=== PATIENT | female | born 1990 | race Caucasian/White ===

== ENCOUNTER → 2025-02-09 08:48 | Outpatient (RCR) | payer OTHER, MEDICAID, SELFPAY ==
--- NOTE | 2023-05-31 16:30 | PT.OIE ---
Current Diagnoses Lymphedema, not elsewhere classified (05/31/23) Visit Care Team Role Provider Type Other Providers Specialty: Address: Phone: Fax: Email: Ryanne Maldonado DO Attending Provider Non-Staff Family Provider Primary Care Provider Referring Provider Specialty: Family Practice Address: [address] [place] [address], [id number] Email: Physical Therapy Initial Evaluation PT-OP-A Visit Information Start: 05/30/23 16:44 Freq: Status: Active Protocol: Document 05/31/23 14:33 SAK (Rec: 05/31/23 15:17 SAK [id number]) Out-Patient Physical Therapy Visit Information Visit Information Visit Type Initial Evaluation Visit Start Time 14:33 Visit Stop Time 15:58 Total Visit Minutes 85 Visit Number 1 Evaluation Information Evaluation Date 05/31/23 Precautions Precautions : 31 weeks today. PT-OP-B Current Condition Start: 05/30/23 16:44 Freq: Status: Active Protocol: Document 05/31/23 14:33 SAK (Rec: 05/31/23 15:17 SAK [id number]) Current Condition History of Current Condition Onset Date 19 y/o Current Complaints worsening lymphedema simone NOEMY's History of Current Condition When 19 y/o hand swelled up, initially was thought to be a spider bite and arms swelled. Lots of testing that was all negative. Soon after she reports her legs started to swell in ankles then gradually got worse in legs, continues to progress. Reports arms don't seem to be getting worse like legs. No family history of lymphedema or lipedema that she knows of. Denies injuries, surgeries except falling off a horse fractured tailbone. History of cellulitis x2 , most recently in November 2022 in left LE, previously about 3 years ago. Was only diagnosed as lymphedema about 3 years ago after she researched online and told doctor she thought that is what she has. Hasn't received any lymphedema treatment, just told to wear compression; has bought multiple compression garments but has had challenges with all of them. Lymphedema worst in the [place]. Prior Treatments and Tests No treatment, self managed some with compression, hasn't ever found any things that work for her. Treatment Goals Patient/Caregiver Goals Decrease lymphedema and be able to self-manage Current Functional Impairments (Reported) Functional Limitations- ADL's legs heavy, takes more time Functional Limitations- Mobility/Gait legs heavy, inc swelling with standing and walking Functional Limitations- Recreation/ difficult due to the weight of Hobbies her legs, self-conscious as well Personal Factors Other Personal Factors That May Effect patient currently , Therapy/Recovery will have difficulty with self -bandaging. willing to help PT-OP-C Subjective Start: 05/30/23 16:44 Freq: Status: Active Protocol: Document 05/31/23 14:33 [facility] (Rec: 06/04/23 08:47 [facility] [id number]) Patient Questionnaires Lymphedema Life Impact Score Lymphedema Score 35 PT-OP-G Mobility & Gait Start: 05/30/23 16:44 Freq: Status: Active Protocol: Document 05/31/23 14:33 SAK (Rec: 06/04/23 08:47 [facility] [id number]) OP Gait Assessment Gait Gait Assistance Required: Independent Assistive Devices Assistive Device None PT-OP-H Neuro Start: 05/30/23 16:44 Freq: Status: Active Protocol: Document 05/31/23 14:33 SAK (Rec: 06/04/23 08:47 [facility] [id number]) Sensation Evaluation Gross Sensation Gross Sensation WNL PT-OP-J Posture/Palpation/Skin Start: 05/30/23 16:44 Freq: Status: Active Protocol: Document 05/31/23 14:33 SAK (Rec: 06/04/23 08:47 [facility] [id number]) Palpation Assessment Location simone LE' Palpation Findings Edema Palpation Details no redness or inc warmth, no fibrosis or hyperkeratosis Skin Assessment Edema Assessment simone LE's Edema Appearance Puffy Subjective Edema Description Tightness Comments no redness, open wounds PT-OP-K Range of Motion Start: 05/30/23 16:44 Freq: Status: Active Protocol: Document 05/31/23 14:33 SAK (Rec: 06/04/23 08:47 [facility] [id number]) Hip Goniometric Range of Motion Hip simone Hip ROM WFL Yes Knee Goniometric Range of Motion Knee simone Knee ROM WFL Yes Ankle and Foot Goniometric Range of Motion Ankle and Foot simone Ankle/Foot ROM WFL No Dorsiflexion with Knee Extended 0 PT-OP-M Strength Start: 05/30/23 16:44 Freq: Status: Active Protocol: Document 05/31/23 14:33 [facility] (Rec: 06/04/23 08:47 [facility] [id number]) Hip Strength Hip Manual Muscle Testing simone Flexion (L2) 4 Good Extension (S1) 4 Good Abduction 4 Good Adduction 4- Good- External Rotation 4- Good- Internal Rotation 4- Good- Knee Strength Knee Manual Muscle Testing simone Flexion (S2) 4 Good Extension (L3) 4 Good Ankle/Foot Strength Ankle and Foot Manual Muscle Testing simone Dorsiflexion (L4) 4+ Good+ Plantarflexion (S1) 4+ Good+ PT-OP-N Lymphedema Start: 05/30/23 16:44 Freq: Status: Active Protocol: Document 05/31/23 14:33 [facility] (Rec: 05/31/23 15:17 [facility] [id number]) Lymphedema Measurements Lower Extremity Circumference Measurements Left Affected MT Heads 25.8 cm Mid-foot 27 cm Medial Malleolus 33.3 cm 10 cm From Medial Malleolus 32.1 cm 20 cm From Medial Malleolus 35.2 cm 30 cm From Medial Malleolus 45.8 cm 40 cm From Medial Malleolus 41.8 cm 50 cm From Medial Malleolus 43.5 cm 60 cm From Medial Malleolus 46.5 cm 70 cm From Medial Malleolus 53.5 cm 80 cm From Medial Malleolus 61.6 cm Knee Joint 44.4 cm Right Affected MT Heads 26.2 cm Mid-foot 27.8 cm Medial Malleolus 34.3 cm 10 cm From Medial Malleolus 36 cm 20 cm From Medial Malleolus 43 cm 30 cm From Medial Malleolus 45.2 cm 40 cm From Medial Malleolus 42.3 cm 50 cm From Medial Malleolus 44.7 cm 60 cm From Medial Malleolus 48.3 cm 70 cm From Medial Malleolus 57.6 cm 80 cm From Medial Malleolus 67.4 cm Knee Joint 45.2 cm Comments Lymphedema Comments No fibrosis or hyperkeratosis. No open wounds PT-OP-Q Treatments Start: 05/30/23 16:44 Freq: Status: Active Protocol: Document 05/31/23 14:33 [facility] (Rec: 06/04/23 08:47 [facility] [id number]) Lymphedema Treatment Manual Lymphatic Drainage Location initiated with patient instruction Duration 20 min Lymphedema Wrapping Body Location right LE Materials Tricofix size F, toe wraps, Artiflex (3 rolls), Komprex posterior ankles, Comprilan (6 , 8,10, 12). Other Use of video [facility] for patient ed and to encourage use of videos at home. Sequential Lymphedema Exercises Location instructed for simone LE's; issued HO Compression Garment Assessment Compression Garment Assessment Details Patient to bring next session Patient Education Lymphedema Pathology done using order taker Lymphedema Prevention issued HO Lymphedema Precautions issued HO Compression Garments discussed and referred to online and video. Self Manual Lymphatic Drainage instructed and issued HO Sequential Lymphedema Exercises instructed and issued HO PT-OP-T Assessment and Plan Start: 05/30/23 16:44 Freq: Status: Active Protocol: Document 05/31/23 14:33 [facility] (Rec: 06/04/23 08:47 [facility] [id number]) Physical Therapy Assessment Rehab Potential Rehabilitation Potential Good Evaluation Complexity Number of Personal Factors/Comorbidities 1-2 Number of Body Systems Impaired 3 Clinical Presentation at Evaluation Evolving Impairments Impairments Activity Tolerance,Edema Goals Two Impairment Lymphedeme Life Impact Scale score 35% Short Term Goal (STG) Decrease lymphedema Life Impact scale to no greater than 25% as measure of improved activity tolerance and quality of life Powder Coater Goal (LTG) Decrease lymphedema Life Impact scale to no greater than 15% as measure of improved activity tolerance and quality of life One Short Term Goal (STG) Patient will be instructed in all aspects of lymphedema self -care to include skin care, self-massage, self-bandaging/ compression, elevation, and lymphedema exercises. Powder Coater Goal (LTG) Decrease patient?s lymphedema to a stable level (no increase or decrease greater than 1 cm over the course of 1 week), patient to be independent with all aspects of self care for lymphedema, and will obtain appropriate compression garment(s) for lymphedema management in the home. Assessment Summary Assessment Patient presents to PT with function-limiting lymphedema simone LE's with history of cellulitis x 2. She has had no previous lymphedema treatment and is at high risk for further episodes of cellulitis and for other complications of lymphedema to include fibrosis, hyperkeratosis, open wounds. She would benefit highly from Complete Decongestive Therapy to address her lymphedema which includes manual lymphatic drainage, skin care, elevation, lymphedema exercises, and compression. Complicating patient's condition right now is the fact that she is 30 weeks , will have difficulty doing self MLD and self- bandaging. Patient is highly motivated and reports her is willing to help. Discussed POC and she is in agreement. Due to insurance restrictions heavy emphasis will be on instruction for self-management. I feel she may be a good candidate for use of a sequential pneumatic pump to assist her with self- management in the home. Physical Therapy Plan Frequency and Duration Frequency of Treatment 8 visists Duration of treatment (weeks) 12 Plan of Care Start Date 05/31/23 Plan of Care End Date 08/31/23 Therapeutic Interventions Therapeutic Interventions Home Exercise Program, Lymphedema Management,Manual Therapy,Patient/Caregiver Education,Self-Care/Home Management,Soft Tissue Mobilization,Taping, Therapeutic Activities, Therapeutic Exercises Modalities Vasopneumatic Devices Next Visit Focus/Plan Next Note Type Treatment Note Next Visit Plan Assess response to lymphedema bandaging. Bandage simone LE's if tolerated. Provide MLD and review self-MLD, lymphedema exercises. Assess patient's current compression garments for appropriateness and discuss options further.
--- NOTE | 2023-05-31 16:30 | PT.OPPOC ---
Physical, Occupational & Speech Therapy At [facility] Current Diagnoses Lymphedema, not elsewhere classified (05/31/23) Visit Care Team Role Provider Type Other Providers Specialty: Address: Phone: Fax: Email: Ryanne Maldonado DO Attending Provider Non-Staff Family Provider Primary Care Provider Referring Provider Specialty: Family Practice Address: [address] [place] [address], [address] Email: Plan Of Care PT-OP-T Assessment and Plan Start: 05/30/23 16:44 Freq: Status: Active Protocol: Document 05/31/23 14:33 SAK (Rec: 06/04/23 08:47 SAK [id number]) Physical Therapy Assessment Rehab Potential Rehabilitation Potential Good Evaluation Complexity Number of Personal Factors/Comorbidities 1-2 Number of Body Systems Impaired 3 Clinical Presentation at Evaluation Evolving Impairments Impairments Activity Tolerance,Edema Goals Two Impairment Lymphedeme Life Impact Scale score 35% Short Term Goal (STG) Decrease lymphedema Life Impact scale to no greater than 25% as measure of improved activity tolerance and quality of life Fdc Goal (LTG) Decrease lymphedema Life Impact scale to no greater than 15% as measure of improved activity tolerance and quality of life One Short Term Goal (STG) Patient will be instructed in all aspects of lymphedema self -care to include skin care, self-massage, self-bandaging/ compression, elevation, and lymphedema exercises. Fdc Goal (LTG) Decrease patient?s lymphedema to a stable level (no increase or decrease greater than 1 cm over the course of 1 week), patient to be independent with all aspects of self care for lymphedema, and will obtain appropriate compression garment(s) for lymphedema management in the home. Assessment Summary Assessment Patient presents to PT with function-limiting lymphedema simone LE's with history of cellulitis x 2. She has had no previous lymphedema treatment and is at high risk for further episodes of cellulitis and for other complications of lymphedema to include fibrosis, hyperkeratosis, open wounds. She would benefit highly from Complete Decongestive Therapy to address her lymphedema which includes manual lymphatic drainage, skin care, elevation, lymphedema exercises, and compression. Complicating patient's condition right now is the fact that she is 30 weeks , will have difficulty doing self MLD and self- bandaging. Patient is highly motivated and reports her is willing to help. Discussed POC and she is in agreement. Due to insurance restrictions heavy emphasis will be on instruction for self-management. I feel she may be a good candidate for use of a sequential pneumatic pump to assist her with self- management in the home. Physical Therapy Plan Frequency and Duration Frequency of Treatment 8 visists Duration of treatment (weeks) 12 Plan of Care Start Date 05/31/23 Plan of Care End Date 08/31/23 Therapeutic Interventions Therapeutic Interventions Home Exercise Program, Lymphedema Management,Manual Therapy,Patient/Caregiver Education,Self-Care/Home Management,Soft Tissue Mobilization,Taping, Therapeutic Activities, Therapeutic Exercises Modalities Vasopneumatic Devices Next Visit Focus/Plan Next Note Type Treatment Note Next Visit Plan Assess response to lymphedema bandaging. Bandage simone LE's if tolerated. Provide MLD and review self-MLD, lymphedema exercises. Assess patient's current compression garments for appropriateness and discuss options further. Plan of Care Dates Plan of Care Start Date 05/31/23 Plan of Care End Date 08/31/23 Electronically Signed by: Rabia Jennings, PT 06/04/23 0847 If you are in agreement with this Plan of Care, please return a signed and dated copy. I have reviewed this Plan of Care and certify that the skilled therapy services above are required to meet the patient?s needs. Physician Signature Date Printed Name and Credentials Clinical Instructor Signature Printed Name and Credentials
--- NOTE | 2023-06-04 16:27 | PT.OTN ---
Current Diagnoses Lymphedema, not elsewhere classified (06/04/23) Physical Therapy Treatment Note PT-OP-A Visit Information Start: 05/30/23 16:44 Freq: Status: Active Protocol: Document 06/04/23 14:30 SAK (Rec: 06/04/23 14:55 [facility] [id number]) Out-Patient Physical Therapy Visit Information Visit Information Visit Type Initial Evaluation Visit Start Time 14:33 Visit Stop Time 15:58 Total Visit Minutes 85 Visit Number 2 Evaluation Information Evaluation Date 05/31/23 Precautions Precautions : 31 weeks today. PT-OP-B Current Condition Start: 05/30/23 16:44 Freq: Status: Active Protocol: Document 06/04/23 14:30 SAK (Rec: 06/04/23 14:55 [facility] [id number]) Current Condition History of Current Condition Onset Date 19 y/o Current Complaints worsening lymphedema simone NOEMY's History of Current Condition When 19 y/o hand swelled up, initially was thought to be a spider bite and arms swelled. Lots of testing that was all negative. Soon after she reports her legs started to swell in ankles then gradually got worse in legs, continues to progress. Reports arms don't seem to be getting worse like legs. No family history of lymphedema or lipedema that she knows of. Denies injuries, surgeries except falling off a horse fractured tailbone. History of cellulitis x2 , most recently in November 2022 in left LE, previously about 3 years ago. Was only diagnosed as lymphedema about 3 years ago after she researched online and told doctor she thought that is what she has. Hasn't received any lymphedema treatment, just told to wear compression; has bought multiple compression garments but has had challenges with all of them. Lymphedema worst in the [place]. Prior Treatments and Tests No treatment, self managed some with compression, hasn't ever found any things that work for her. PT-OP-C Subjective Start: 05/30/23 16:44 Freq: Status: Active Protocol: Document 05/31/23 14:33 SAK (Rec: 06/04/23 08:47 SAK [id number]) Patient Questionnaires Lymphedema Life Impact Score Lymphedema Score 35 PT-OP-G Mobility & Gait Start: 05/30/23 16:44 Freq: Status: Active Protocol: Document 05/31/23 14:33 SAK (Rec: 06/04/23 08:47 [facility] [id number]) OP Gait Assessment Gait Gait Assistance Required: Independent Assistive Devices Assistive Device None PT-OP-H Neuro Start: 05/30/23 16:44 Freq: Status: Active Protocol: Document 05/31/23 14:33 SAK (Rec: 06/04/23 08:47 SAK [id number]) Sensation Evaluation Gross Sensation Gross Sensation WNL PT-OP-J Posture/Palpation/Skin Start: 05/30/23 16:44 Freq: Status: Active Protocol: Document 05/31/23 14:33 SAK (Rec: 06/04/23 08:47 [facility] [id number]) Palpation Assessment Location simone LE' Palpation Findings Edema Palpation Details no redness or inc warmth, no fibrosis or hyperkeratosis Skin Assessment Edema Assessment simone LE's Edema Appearance Puffy Subjective Edema Description Tightness Comments no redness, open wounds PT-OP-K Range of Motion Start: 05/30/23 16:44 Freq: Status: Active Protocol: Document 05/31/23 14:33 SAK (Rec: 06/04/23 08:47 [facility] [id number]) Hip Goniometric Range of Motion Hip simone Hip ROM WFL Yes Knee Goniometric Range of Motion Knee simone Knee ROM WFL Yes Ankle and Foot Goniometric Range of Motion Ankle and Foot simone Ankle/Foot ROM WFL No Dorsiflexion with Knee Extended 0 PT-OP-M Strength Start: 05/30/23 16:44 Freq: Status: Active Protocol: Document 05/31/23 14:33 SAK (Rec: 06/04/23 08:47 [facility] [id number]) Hip Strength Hip Manual Muscle Testing simone Flexion (L2) 4 Good Extension (S1) 4 Good Abduction 4 Good Adduction 4- Good- External Rotation 4- Good- Internal Rotation 4- Good- Knee Strength Knee Manual Muscle Testing simone Flexion (S2) 4 Good Extension (L3) 4 Good Ankle/Foot Strength Ankle and Foot Manual Muscle Testing simone Dorsiflexion (L4) 4+ Good+ Plantarflexion (S1) 4+ Good+ PT-OP-N Lymphedema Start: 05/30/23 16:44 Freq: Status: Active Protocol: Document 06/04/23 14:30 SAK (Rec: 06/04/23 14:55 SAK [id number]) Lymphedema Measurements Lower Extremity Circumference Measurements Left Affected MT Heads 25.4 cm Mid-foot 26.5 cm Medial Malleolus 33 cm 10 cm From Medial Malleolus 31.9 cm 20 cm From Medial Malleolus 34.8 cm 30 cm From Medial Malleolus 45.6 cm 40 cm From Medial Malleolus 41.6 cm 50 cm From Medial Malleolus 43 cm 60 cm From Medial Malleolus 46.1 cm 70 cm From Medial Malleolus 54 cm 80 cm From Medial Malleolus 61.3 cm Knee Joint 44 cm Right Affected MT Heads 26.6 cm Mid-foot 28.3 cm Medial Malleolus 32.7 cm 10 cm From Medial Malleolus 34.2 cm 20 cm From Medial Malleolus 42.6 cm 30 cm From Medial Malleolus 44.8 cm 40 cm From Medial Malleolus 42.2 cm 50 cm From Medial Malleolus 42.1 cm 60 cm From Medial Malleolus 49 cm 70 cm From Medial Malleolus 58.9 cm 80 cm From Medial Malleolus 66.7 cm Knee Joint 42.1 cm PT-OP-Q Treatments Start: 05/30/23 16:44 Freq: Status: Active Protocol: Document 06/04/23 14:30 [facility] (Rec: 06/04/23 16:27 [facility] [id number]) Lymphedema Treatment Lymphedema Wrapping Body Location right LE Materials Tricofix size F, toe wraps, Artiflex (3 rolls), Komprex posterior ankles, Comprilan (6 , 8,10, 12). No bandaging left LE; patient left bandages at home; issued loaner XL 20-30 mm Hg compression thigh high stocking; good fit. Shown how to use rubber glove for easy adjustment of stocking. Instructed to bandage simone at home. Stay bandaged 23 hrs per day as possible. Compression Garment Assessment Compression Garment Assessment Details issued loaner 20-30 mm Hg compression stocking XL fit left. Patient brought Bioflect compression tights; good fit, not enough compression, is open toe. Recommend closed toe garments for this patient, potentially toe caps as well. Discussed layering of compression as an option. Issued loaner Tribute night garment for lower leg and thigh for trial over the weekend. Patient Education Lymphedema Pathology reviewed, inst Compression Garments as above Self Manual Lymphatic Drainage further instruction Sequential Lymphedema Exercises no time today Other instructed in MLD and compression bandaging; he took video for reference at home. Other Other Trial sequential pneumatic pump right LE after proximal MLD, lymph node clearing; 30 mm Hg pressure x 30 min during MLD left LE. PT-OP-T Assessment and Plan Start: 05/30/23 16:44 Freq: Status: Active Protocol: Document 06/04/23 14:30 [facility] (Rec: 06/04/23 14:55 [facility] [id number]) Physical Therapy Assessment Goals Two Impairment Lymphedema affecting activity tolerance Impairment Lymphedeme Life Impact Scale score 35% Short Term Goal (STG) Decrease lymphedema Life Impact scale to no greater than 25% as measure of improved activity tolerance and quality of life STG Duration 05/31/23 Detention Goal (LTG) Decrease lymphedema Life Impact scale to no greater than 15% as measure of improved activity tolerance and quality of life LTG Duration 08/31/22 One Impairment Lymphedema simone LE's Short Term Goal (STG) Patient will be instructed in all aspects of lymphedema self -care to include skin care, self-massage, self-bandaging/ compression, elevation, and lymphedema exercises. STG Duration 05/31/23 Detention Goal (LTG) Decrease patient?s lymphedema to a stable level (no increase or decrease greater than 1 cm over the course of 1 week), patient to be independent with all aspects of self care for lymphedema, and will obtain appropriate compression garment(s) for lymphedema management in the home. LTG Duration 08/31/22 Assessment Summary Assessment Patient came to PT with her today, not wearing compression. [place] compression bandaging helpful but had difficulty with it staying up. States she has difficulty bandaging due to the size of her belly with ; willing to bandage as well as do MLD, asking appropriate questions. Physical Therapy Plan Frequency and Duration Frequency of Treatment 8 visists Duration of treatment (weeks) 12 Plan of Care Start Date 05/31/23 Plan of Care End Date 08/31/23 Therapeutic Interventions Therapeutic Interventions Home Exercise Program, Lymphedema Management,Manual Therapy,Patient/Caregiver Education,Self-Care/Home Management,Soft Tissue Mobilization,Taping, Therapeutic Activities, Therapeutic Exercises Modalities Vasopneumatic Devices Next Visit Focus/Plan Next Note Type Treatment Note Next Visit Plan Continue Complete Decongestive Therapy in reduction phase with skin care, MLD, compression bandaging, lymphedema exercises. Next session bandage simone LE's, end with recumbant ellliptical to further facilitate lymphatic flow at end of session s/p MLD and bandaging.
--- NOTE | 2023-06-11 08:26 | PT-OP ANOTE ---
cancelled PT due to family emergency
--- NOTE | 2023-06-13 16:59 | PT.OTN ---
Current Diagnoses Lymphedema, not elsewhere classified (06/13/23) Physical Therapy Treatment Note PT-OP-A Visit Information Start: 05/30/23 16:44 Freq: Status: Active Protocol: Document 06/13/23 14:46 SAK (Rec: 06/13/23 15:25 [facility] [id number]) Out-Patient Physical Therapy Visit Information Visit Information Visit Type Treatment Note Visit Start Time 14:46 Visit Stop Time 15:56 Total Visit Minutes 60 Visit Number 3 Evaluation Information Evaluation Date 05/31/23 Precautions Precautions 32 wks PT-OP-B Current Condition Start: 05/30/23 16:44 Freq: Status: Active Protocol: Document 06/13/23 14:46 SAK (Rec: 06/13/23 15:25 [facility] [id number]) Current Condition History of Current Condition Onset Date 19 y/o Current Complaints worsening lymphedema simone NOEMY's History of Current Condition When 19 y/o hand swelled up, initially was thought to be a spider bite and arms swelled. Lots of testing that was all negative. Soon after she reports her legs started to swell in ankles then gradually got worse in legs, continues to progress. Reports arms don't seem to be getting worse like legs. No family history of lymphedema or lipedema that she knows of. Denies injuries, surgeries except falling off a horse fractured tailbone. History of cellulitis x2 , most recently in November 2022 in left LE, previously about 3 years ago. Was only diagnosed as lymphedema about 3 years ago after she researched online and told doctor she thought that is what she has. Hasn't received any lymphedema treatment, just told to wear compression; has bought multiple compression garments but has had challenges with all of them. Lymphedema worst in the [place]. Prior Treatments and Tests No treatment, self managed some with compression, hasn't ever found any things that work for her. PT-OP-C Subjective Start: 05/30/23 16:44 Freq: Status: Active Protocol: Document 06/13/23 14:46 SAK (Rec: 06/13/23 15:25 [facility] [id number]) OP-PT Subjective Patient Comments Patient Comments Patient has been bandaging herself for 5 days instead of due to father in law health issues. Hasn't been able to be as compliant with self care since then. Not as consistent with all the family stress. [place] she had been making good progress prior ; could see ankle bones and more of knees. PT-OP-G Mobility & Gait Start: 05/30/23 16:44 Freq: Status: Active Protocol: Document 05/31/23 14:33 SAK (Rec: 06/04/23 08:47 SAK [id number]) OP Gait Assessment Gait Gait Assistance Required: Independent Assistive Devices Assistive Device None PT-OP-H Neuro Start: 05/30/23 16:44 Freq: Status: Active Protocol: Document 05/31/23 14:33 SAK (Rec: 06/04/23 08:47 [facility]AK [id number]) Sensation Evaluation Gross Sensation Gross Sensation WNL PT-OP-J Posture/Palpation/Skin Start: 05/30/23 16:44 Freq: Status: Active Protocol: Document 05/31/23 14:33 SAK (Rec: 06/04/23 08:47 SAK [id number]) Palpation Assessment Location simone LE' Palpation Findings Edema Palpation Details no redness or inc warmth, no fibrosis or hyperkeratosis Skin Assessment Edema Assessment simone LE's Edema Appearance Puffy Subjective Edema Description Tightness Comments no redness, open wounds PT-OP-K Range of Motion Start: 05/30/23 16:44 Freq: Status: Active Protocol: Document 05/31/23 14:33 SAK (Rec: 06/04/23 08:47 [facility] [id number]) Hip Goniometric Range of Motion Hip simone Hip ROM WFL Yes Knee Goniometric Range of Motion Knee simone Knee ROM WFL Yes Ankle and Foot Goniometric Range of Motion Ankle and Foot simone Ankle/Foot ROM WFL No Dorsiflexion with Knee Extended 0 PT-OP-M Strength Start: 05/30/23 16:44 Freq: Status: Active Protocol: Document 05/31/23 14:33 SAK (Rec: 06/04/23 08:47 SAK [id number]) Hip Strength Hip Manual Muscle Testing simone Flexion (L2) 4 Good Extension (S1) 4 Good Abduction 4 Good Adduction 4- Good- External Rotation 4- Good- Internal Rotation 4- Good- Knee Strength Knee Manual Muscle Testing simone Flexion (S2) 4 Good Extension (L3) 4 Good Ankle/Foot Strength Ankle and Foot Manual Muscle Testing simone Dorsiflexion (L4) 4+ Good+ Plantarflexion (S1) 4+ Good+ PT-OP-N Lymphedema Start: 05/30/23 16:44 Freq: Status: Active Protocol: Document 06/13/23 14:46 [facility] (Rec: 06/13/23 15:25 [facility] [id number]) Lymphedema Measurements Lower Extremity Circumference Measurements Left Affected MT Heads 26.4 cm Mid-foot 27.3 cm Medial Malleolus 32.1 cm 10 cm From Medial Malleolus 37.4 cm 20 cm From Medial Malleolus 44.6 cm 30 cm From Medial Malleolus 43.8 cm 40 cm From Medial Malleolus 43.8 cm 50 cm From Medial Malleolus 48.9 cm 60 cm From Medial Malleolus 57.7 cm 70 cm From Medial Malleolus 63.5 cm 80 cm From Medial Malleolus 68 cm Knee Joint 43.8 cm - from anterior ankle crease Right Affected MT Heads 27 cm Mid-foot 27.8 cm Medial Malleolus 32.6 cm 10 cm From Medial Malleolus 35.4 cm 20 cm From Medial Malleolus 43.8 cm 30 cm From Medial Malleolus 46 cm 40 cm From Medial Malleolus 43 cm 50 cm From Medial Malleolus 48 cm 60 cm From Medial Malleolus 59 cm 70 cm From Medial Malleolus 69 cm Knee Joint 46 cm PT-OP-Q Treatments Start: 05/30/23 16:44 Freq: Status: Active Protocol: Document 06/13/23 14:46 [facility] (Rec: 06/13/23 15:25 [facility] [id number]) Lymphedema Treatment Manual Lymphatic Drainage Location for left LE lymphedema Duration 30 min Comments during sequential pneumatic pump right LE Lymphedema Wrapping Body Location simone LE's Materials Tricofix size F, toe wraps, Artiflex (3 rolls), Komprex posterior ankles, Comprilan (6 , 8,10, 12) MTP to groin Other Cetaphil lotion applied to LE' s prior to bandaging; patient unable to reach fully at home. Sequential Lymphedema Exercises Location HEP as instructed Comments unable to do recumbant elliptical due to running out of time today Patient Education Compression Garments further discussion, educated in layering options Sequential Lymphedema Exercises HEP Other encouraged viewing additional videos, especially regarding compression garments. Other Other use sequential pneumatic pump 40 mm Hg right LE with good tolerance 30 min during MLD left LE PT-OP-T Assessment and Plan Start: 05/30/23 16:44 Freq: Status: Active Protocol: Document 06/13/23 14:46 BRENDA (Rec: 06/13/23 15:25 [facility]AK [id number]) Physical Therapy Assessment Goals Two Impairment Lymphedema affecting activity tolerance Impairment Lymphedeme Life Impact Scale score 35% Short Term Goal (STG) Decrease lymphedema Life Impact scale to no greater than 25% as measure of improved activity tolerance and quality of life STG Duration 05/31/23 Shelter Goal (LTG) Decrease lymphedema Life Impact scale to no greater than 15% as measure of improved activity tolerance and quality of life LTG Duration 08/31/22 One Impairment Lymphedema simone LE's Short Term Goal (STG) Patient will be instructed in all aspects of lymphedema self -care to include skin care, self-massage, self-bandaging/ compression, elevation, and lymphedema exercises. STG Duration 05/31/23 Shelter Goal (LTG) Decrease patient?s lymphedema to a stable level (no increase or decrease greater than 1 cm over the course of 1 week), patient to be independent with all aspects of self care for lymphedema, and will obtain appropriate compression garment(s) for lymphedema management in the home. LTG Duration 08/31/22 Assessment Summary Assessment Patient circumferential measurements have mostly increased since last session due to not having her to bandage her or assist with massage. Since he has been at hospital with pt fatherin law. Prior to that after last PT session states bandaging by her had been very effective in reducing her edema. Physical Therapy Plan Frequency and Duration Frequency of Treatment 8 visists Duration of treatment (weeks) 12 Plan of Care Start Date 05/31/23 Plan of Care End Date 08/31/23 Therapeutic Interventions Therapeutic Interventions Home Exercise Program, Lymphedema Management,Manual Therapy,Patient/Caregiver Education,Self-Care/Home Management,Soft Tissue Mobilization,Taping, Therapeutic Activities, Therapeutic Exercises Modalities Vasopneumatic Devices Next Visit Focus/Plan Next Note Type Treatment Note Next Visit Plan Continue Complete Decongestive Therapy in reduction phase with skin care, MLD, compression bandaging, lymphedema exercises. Trial use foam on foot during use of pump and with bandaging.
--- NOTE | 2023-06-21 15:03 | PT.OTN ---
Current Diagnoses Lymphedema, not elsewhere classified (06/21/23) Physical Therapy Treatment Note PT-OP-A Visit Information Start: 05/30/23 16:44 Freq: Status: Active Protocol: Document 06/21/23 10:34 SAK (Rec: 06/21/23 11:38 [facility] [id number]) Out-Patient Physical Therapy Visit Information Visit Information Visit Type Treatment Note Visit Start Time 10:35 Visit Stop Time 11:35 Total Visit Minutes 60 Visit Number 4 Evaluation Information Evaluation Date 05/31/23 Precautions Precautions 34 wks PT-OP-B Current Condition Start: 05/30/23 16:44 Freq: Status: Active Protocol: Document 06/21/23 10:34 SAK (Rec: 06/21/23 11:38 [facility] [id number]) Current Condition History of Current Condition Onset Date 19 y/o Current Complaints worsening lymphedema simone NOEMY's History of Current Condition When 19 y/o hand swelled up, initially was thought to be a spider bite and arms swelled. Lots of testing that was all negative. Soon after she reports her legs started to swell in ankles then gradually got worse in legs, continues to progress. Reports arms don't seem to be getting worse like legs. No family history of lymphedema or lipedema that she knows of. Denies injuries, surgeries except falling off a horse fractured tailbone. History of cellulitis x2 , most recently in November 2022 in left LE, previously about 3 years ago. Was only diagnosed as lymphedema about 3 years ago after she researched online and told doctor she thought that is what she has. Hasn't received any lymphedema treatment, just told to wear compression; has bought multiple compression garments but has had challenges with all of them. Lymphedema worst in the [place]. Prior Treatments and Tests No treatment, self managed some with compression, hasn't ever found any things that work for her. PT-OP-C Subjective Start: 05/30/23 16:44 Freq: Status: Active Protocol: Document 06/21/23 10:34 SAK (Rec: 06/21/23 11:38 [facility] [id number]) OP-PT Subjective Patient Comments Patient Comments Feeling larger overall due to including face and rest of body, feels affecting size of legs as well. Trying to be as consistent as possible with lymphedema management but is complicating factor. Has been using the pump at home, doing exercises and MLD, bandaging. Agrees with PT it may be time to order compression garments right now, continue bandaging until receives, layer as needed. PT-OP-G Mobility & Gait Start: 05/30/23 16:44 Freq: Status: Active Protocol: Document 05/31/23 14:33 SAK (Rec: 06/04/23 08:47 [facility] [id number]) OP Gait Assessment Gait Gait Assistance Required: Independent Assistive Devices Assistive Device None PT-OP-H Neuro Start: 05/30/23 16:44 Freq: Status: Active Protocol: Document 05/31/23 14:33 SAK (Rec: 06/04/23 08:47 [facility] [id number]) Sensation Evaluation Gross Sensation Gross Sensation WNL PT-OP-J Posture/Palpation/Skin Start: 05/30/23 16:44 Freq: Status: Active Protocol: Document 05/31/23 14:33 SAK (Rec: 06/04/23 08:47 [facility] [id number]) Palpation Assessment Location simone LE' Palpation Findings Edema Palpation Details no redness or inc warmth, no fibrosis or hyperkeratosis Skin Assessment Edema Assessment simone LE's Edema Appearance Puffy Subjective Edema Description Tightness Comments no redness, open wounds PT-OP-K Range of Motion Start: 05/30/23 16:44 Freq: Status: Active Protocol: Document 05/31/23 14:33 SAK (Rec: 06/04/23 08:47 [facility] [id number]) Hip Goniometric Range of Motion Hip simone Hip ROM WFL Yes Knee Goniometric Range of Motion Knee simone Knee ROM WFL Yes Ankle and Foot Goniometric Range of Motion Ankle and Foot simone Ankle/Foot ROM WFL No Dorsiflexion with Knee Extended 0 PT-OP-M Strength Start: 05/30/23 16:44 Freq: Status: Active Protocol: Document 05/31/23 14:33 SAK (Rec: 06/04/23 08:47 [facility] [id number]) Hip Strength Hip Manual Muscle Testing simone Flexion (L2) 4 Good Extension (S1) 4 Good Abduction 4 Good Adduction 4- Good- External Rotation 4- Good- Internal Rotation 4- Good- Knee Strength Knee Manual Muscle Testing simone Flexion (S2) 4 Good Extension (L3) 4 Good Ankle/Foot Strength Ankle and Foot Manual Muscle Testing simone Dorsiflexion (L4) 4+ Good+ Plantarflexion (S1) 4+ Good+ PT-OP-N Lymphedema Start: 05/30/23 16:44 Freq: Status: Active Protocol: Document 06/21/23 10:34 [facility] (Rec: 06/21/23 11:38 [facility] [id number]) Lymphedema Measurements Lower Extremity Circumference Measurements Left Affected MT Heads 26.3 cm Mid-foot 27.8 cm Medial Malleolus 32 cm 10 cm From Medial Malleolus 36.2 cm 20 cm From Medial Malleolus 42.7 cm 30 cm From Medial Malleolus 45 cm 40 cm From Medial Malleolus 41.7 cm 50 cm From Medial Malleolus 48.4 cm 60 cm From Medial Malleolus 56.9 cm 70 cm From Medial Malleolus 63.4 cm Knee Joint 43.3 cm - from anterior ankle crease Right Affected MT Heads 26.7 cm Mid-foot 28.1 cm Medial Malleolus 32.6 cm 10 cm From Medial Malleolus 35.9 cm 20 cm From Medial Malleolus 42.8 cm 30 cm From Medial Malleolus 45.9 cm 40 cm From Medial Malleolus 42.6 cm 50 cm From Medial Malleolus 48.1 cm 60 cm From Medial Malleolus 59.6 cm 70 cm From Medial Malleolus 66.5 cm Knee Joint 44.7 cm PT-OP-Q Treatments Start: 05/30/23 16:44 Freq: Status: Active Protocol: Document 06/21/23 10:34 [facility] (Rec: 06/24/23 15:03 [facility] [id number]) Lymphedema Treatment Manual Lymphatic Drainage Location for left LE lymphedema Duration 30 min Comments during sequential pneumatic pump right LE Lymphedema Wrapping Body Location simone LE's Materials Tricofix size F, toe wraps, Artiflex (3 rolls), Komprex posterior ankles, Comprilan (6 , 8,10, 12) MTP to groin Other Cetaphil lotion applied to LE' s prior to bandaging; patient unable to reach fully at home. Compression Garment Assessment Compression Garment Assessment Details further discussion of compression garment options, patient given measurements for ability to look online including for toe caps. Benefits of layering different compression discussed. Patient demonstrated good understanding Patient Education Sequential Lymphedema Exercises HEP Other Other use sequential pneumatic pump 40 mm Hg right LE with good tolerance 30 min during MLD left LE PT-OP-T Assessment and Plan Start: 05/30/23 16:44 Freq: Status: Active Protocol: Document 06/21/23 10:34 [facility] (Rec: 06/21/23 11:38 [facility] [id number]) Physical Therapy Assessment Assessment Summary Assessment Circumferential measuremetns better than last session due to being home again, but not as good as a couple weeks ago. Complicating factor is increase in weight from . Discussed and agreed it would be beneficial for patient to order compression stockings (thigh high) at this time, continue to bandage and/or layer compression options as needed through , knowing that after it may be easier to achieve further reduction and evaluate for further garments Physical Therapy Plan Frequency and Duration Frequency of Treatment 8 visists Duration of treatment (weeks) 12 Plan of Care Start Date 05/31/23 Plan of Care End Date 08/31/23 Therapeutic Interventions Therapeutic Interventions Home Exercise Program, Lymphedema Management,Manual Therapy,Patient/Caregiver Education,Self-Care/Home Management,Soft Tissue Mobilization,Taping, Therapeutic Activities, Therapeutic Exercises Modalities Vasopneumatic Devices Next Visit Focus/Plan Next Note Type Treatment Note Next Visit Plan Continue Complete Decongestive Therapy in reduction phase with skin care, MLD, compression bandaging, lymphedema exercises. Trial use foam on foot during use of pump and with bandaging.
--- NOTE | 2025-02-05 11:13 | PT.OPDS ---
Current Diagnoses Lymphedema, not elsewhere classified (06/21/23) Visit Care Team Role Provider Type Other Providers Specialty: Address: Phone: Fax: Email: Ryanne Maldonado DO Attending Provider Non-Staff Family Provider Primary Care Provider Referring Provider Specialty: Family Practice Address: [address] [place] [address], [phone] Email: Visit Number Visit Number 4 Discharge Summary PT-OP-B Current Condition Start: 05/30/23 16:44 Freq: Status: Active Protocol: Document 06/21/23 10:34 [facility]AK (Rec: 06/21/23 11:38 [facility] [id number]) Current Condition History of Current Condition Onset Date 19 y/o Current Complaints worsening lymphedema simone LE's History of Current When 19 y/o hand swelled up, initially was thought to Condition be a spider bite and arms swelled. Lots of testing that was all negative. Soon after she reports her legs started to swell in ankles then gradually got worse in legs, continues to progress. Reports arms don't seem to be getting worse like legs. No family history of lymphedema or lipedema that she knows of. Denies injuries, surgeries except falling off a horse fractured tailbone. History of cellulitis x2 , most recently in November 2022 in left LE, previously about 3 years ago. Was only diagnosed as lymphedema about 3 years ago after she researched online and told doctor she thought that is what she has. Hasn't received any lymphedema treatment, just told to wear compression; has bought multiple compression garments but has had challenges with all of them. Lymphedema worst in the [place]. Prior Treatments and No treatment, self managed some with compression, hasn' Tests t ever found any things that work for her. PT-OP-C Subjective Start: 05/30/23 16:44 Freq: Status: Active Protocol: Document 06/21/23 10:34 SAK (Rec: 06/21/23 11:38 [facility] [id number]) OP-PT Subjective Patient Comments Patient Comments Feeling larger overall due to including face and rest of body, feels affecting size of legs as well. Trying to be as consistent as possible with lymphedema management but is complicating factor. Has been using the pump at home, doing exercises and MLD, bandaging. Agrees with PT it may be time to order compression garments right now, continue bandaging until receives, layer as needed. PT-OP-G Mobility & Gait Start: 05/30/23 16:44 Freq: Status: Active Protocol: Document 05/31/23 14:33 [facility]AK (Rec: 06/04/23 08:47 [facility] [id number]) OP Gait Assessment Gait Gait Assistance Independent Required: Assistive Devices Assistive Device None PT-OP-H Neuro Start: 05/30/23 16:44 Freq: Status: Active Protocol: Document 05/31/23 14:33 SAK (Rec: 06/04/23 08:47 [facility] [id number]) Sensation Evaluation Gross Sensation Gross Sensation WNL PT-OP-J Posture/Palpation/Skin Start: 05/30/23 16:44 Freq: Status: Active Protocol: Document 05/31/23 14:33 [facility]AK (Rec: 06/04/23 08:47 [facility] [id number]) Palpation Assessment Location simone LE' Palpation Findings Edema Palpation Details no redness or inc warmth, no fibrosis or hyperkeratosis Skin Assessment Edema Assessment simone LE's Edema Appearance Puffy Subjective Edema Tightness Description Comments no redness, open wounds PT-OP-K Range of Motion Start: 05/30/23 16:44 Freq: Status: Active Protocol: Document 05/31/23 14:33 SAK (Rec: 06/04/23 08:47 [facility] [id number]) Hip Goniometric Range of Motion Hip simone Hip ROM WFL Yes Knee Goniometric Range of Motion Knee simone Knee ROM WFL Yes Ankle and Foot Goniometric Range of Motion Ankle and Foot simone Ankle/Foot ROM WFL No Dorsiflexion with 0 Knee Extended PT-OP-M Strength Start: 05/30/23 16:44 Freq: Status: Active Protocol: Document 05/31/23 14:33 SAK (Rec: 06/04/23 08:47 [facility] [id number]) Hip Strength Hip Manual Muscle Testing simone Flexion (L2) 4 Good Extension (S1) 4 Good Abduction 4 Good Adduction 4- Good- External Rotation 4- Good- Internal Rotation 4- Good- Knee Strength Knee Manual Muscle Testing simone Flexion (S2) 4 Good Extension (L3) 4 Good Ankle/Foot Strength Ankle and Foot Manual Muscle Testing simone Dorsiflexion (L4) 4+ Good+ Plantarflexion (S1) 4+ Good+ PT-OP-N Lymphedema Start: 05/30/23 16:44 Freq: Status: Active Protocol: Document 06/21/23 10:34 [facility]AK (Rec: 06/21/23 11:38 [facility] [id number]) Lymphedema Measurements Lower Extremity Circumference Measurements Left Affected MT Heads 26.3 cm Mid-foot 27.8 cm Medial Malleolus 32 cm 10 cm From Medial 36.2 cm Malleolus 20 cm From Medial 42.7 cm Malleolus 30 cm From Medial 45 cm Malleolus 40 cm From Medial 41.7 cm Malleolus 50 cm From Medial 48.4 cm Malleolus 60 cm From Medial 56.9 cm Malleolus 70 cm From Medial 63.4 cm Malleolus Knee Joint 43.3 cm - from anterior ankle crease Right Affected MT Heads 26.7 cm Mid-foot 28.1 cm Medial Malleolus 32.6 cm 10 cm From Medial 35.9 cm Malleolus 20 cm From Medial 42.8 cm Malleolus 30 cm From Medial 45.9 cm Malleolus 40 cm From Medial 42.6 cm Malleolus 50 cm From Medial 48.1 cm Malleolus 60 cm From Medial 59.6 cm Malleolus 70 cm From Medial 66.5 cm Malleolus Knee Joint 44.7 cm PT-OP-T Assessment and Plan Start: 05/30/23 16:44 Freq: Status: Active Protocol: Document 02/05/25 11:13 BRENDA (Rec: 02/05/25 11:13 [facility] Laptop) Physical Therapy Plan Discharge Physical Therapy Discharge Reasons No Longer Attending PT
== END | disposition home or self-care (01) ==
LOC: PHYS 05-31 14:16
PROVIDERS: Family Provider Family Medicine; PCP Family Medicine; Referring Provider Family Medicine; Visit Provider Family Medicine
DX: I89.0 Lymphedema, not elsewhere classified (principal)
CPT/HCPCS: 97140; 97162; 97535